=== PATIENT | male | born 1960 | race Caucasian/White ===

== ENCOUNTER → 2018-03-26 | Outpatient (CLI) | payer OTHER ==
[~2018-03-26] VITALS: Ht 182.9 cm; Wt 89.4 kg
[~2018-03-26] MED LIST: ASPIR 8181 MG PO; CHROMIUM PICO200 MCG PO; CO Q-10100 MG PO; HYDROCODONE-AP1 EAC6 PO; LIPITOR10 MG PO; MOBIC15 MG PO; MOBIC7.5 MG PO; MULTIVITAMINS; NORCO 5-325 TA1 EACH PO; TRILIPIX45 MG PO; VITAMIN D400 UNIT PO
[2018-03-26 10:03] VITALS: BP 131/73
--- NOTE | 2018-03-26 10:24 | NUR ---
Pain Clinic Assessment: 1. History of Osteoarthritis: Not Applicable History of Rheumatoid Arthritis: 2. Height: 6 ft. 0 in. 182.9 cm. Weight: 197.0 lb. oz. 89.359 kg. Patient's BMI: 26.7 3. Vital Signs: BP: 131/73 Pulse: 73 Resp: 16 Temp: 02 Sat: 96 ECG Mon: 4. Pain Intensity: 9 5. Fall Risk: Dizziness: N Needs help standing or walking: N Fallen in the last 3 months: N Fall risk comments: 6. Patient on Blood Thinner: None 7. History of Hypertension: N 8. Opioid Therapy greater than 6 weeks: N Opiate Contract Signed: 9. Risk Assessment Tool Provided: 10. Functional Assessment Tool: 11. Recreational Drug Use: Never Drug Type: Tobacco Use: Never Smoker Tobacco Type: Amount or Packs/day: How Many Years: Alcohol Use: No Frequency: Quant:
--- NOTE | 2018-03-31 11:18 | HPC ---
[facility] [address] [place] [address] PAIN MANAGEMENT CONSULTATION Name: SUSAN BAILEY Room #: REG TODD Riaz#: [id number] Admission: 03/26/18 Attend Phys: Osman Alvarez MD Discharge: Date of : 58 Report #: [id number] THIS REPORT FOR: //name// CC: Osman Nelson DATE OF SERVICE: 03/26/2018 CHIEF COMPLAINT: Neck pain, numbness and burning into both arms. HISTORY OF PRESENT ILLNESS: This is a patient who I have known for almost 20 years. I first treated him for cervical radiculopathy, I believe in the . He had a herniated nucleus pulposus at C6-C7 at that time. He then had recurrent symptoms in 2003 and 2010 each time receiving good response to 1 or 2 cervical epidural injections. About 2 months ago, he was moving boxes when he and his moved from their home and he developed recurring symptoms of cervical radiculopathy. It is intermittent on each arm moving from one to the other, burning sensation with tingling into his hands. It is oftentimes worse at night and he describes it today as a 7/10, but it has been very severe bothersome up to a 9/10. He has tried all the conservative measures of waiting for time, gentle range of motion, exercises and physical treatments that he is known from the past. He has taken anti-inflammatory medications as well as gabapentin without improvement. He is scheduled for a cervical epidural injection today. We have not ordered a new MRI, but we will consider that if he does not respond to treatment. MEDICATIONS: Atorvastatin. ALLERGIES: PENICILLIN. PAST MEDICAL HISTORY: Hernia repairs, 3 within the last 5 years. Otherwise, he denies any other significant medical illnesses. REVIEW OF SYSTEMS: Positive for sudden hearing loss. He wears hearing aids. He has a history of kidney stones. SOCIAL HISTORY: Denies tobacco or alcohol. 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 PHYSICAL EXAMINATION: [facility] [address] [place] [address] PAIN MANAGEMENT CONSULTATION Name: SUSAN BAILEY Florencia [id number] Admission: 03/26/18 Attend Phys: Osman Alvarez MD Discharge: Date of : 58 Report #: [id number] GENERAL: He is a very pleasant 57-year-old, alert and oriented. No signs of depression or anxiety. VITAL SIGNS: His BMI is 26.7, blood pressure 131/73, heart rate 73, respirations 16. MUSCULOSKELETAL: Cervical range of motion is examined and is actually pretty good in all planes, flexion, extension, [id number]-[id number] rotation and side tilt. He has some tenderness at the base of the cervical spine and some myofascial spasm that is mild in nature. Strength in the upper extremities is within normal limits. Deep tendon reflexes, however, are diminished, 1+ to trace at the biceps, triceps and brachioradialis bilaterally. Deep tendon reflexes in the lower extremities are 1-2+, considered normal with no evidence of hyperreflexia. He has numbness in a broad distribution throughout the C5, C6, C7 distribution. Old MRI is reviewed and he does have degenerative disk disease with history of herniated nucleus pulposus. Disk degeneration is noted at C5-C6 and C6-C7 with encroachment upon the cervical canal. IMPRESSION: Cervical radiculopathy, bilateral. PROCEDURE: Cervical epidural steroid injection under fluoroscopic guidance. DESCRIPTION OF PROCEDURE: The patient was taken to the fluoroscopic suite, placed prone, skin prepped with ChloraPrep. Skin anesthetized over the C6-C7 interspace. A 20-gauge Tuohy epidural needle advanced first attempt into the epidural space with loss of resistance technique. There was no blood or CSF aspirated. 1 mL of Omnipaque injected with good spread of dye observed in the epidural space followed by 3 mL of 0.5% lidocaine mixed with 80 mg of triamcinolone. He tolerated the procedure well and was taken to recovery room for observation and followed for 45 minutes and then discharged in good condition. Follow up as needed. We will consider a cervical MRI if symptoms are not improved. <ELECTRONICALLY SIGNED> By: Osman Alvarez MD 03/31/18 [id number] Osman Alvarez MD /nt
== END | disposition home or self-care (01) ==
LOC: PAIN 08:06
DX: M54.12 Radiculopathy, cervical region (principal); G89.29 Other chronic pain; Z79.899 Other long term (current) drug therapy; Z88.0 Allergy status to penicillin; Z87.442 Personal history of urinary calculi; Z98.890 Other specified postprocedural states

== ENCOUNTER → 2020-10-18 | Outpatient (CLI) | payer OTHER, BC ==
[~2020-10-18] VITALS: Ht 182.9 cm; Wt 93.6 kg
[2020-10-18 12:53] VITALS: BP 130/88
--- NOTE | 2020-10-18 13:33 | NUR ---
Pain Clinic Assessment: 1. History of Osteoarthritis: Not Applicable History of Rheumatoid Arthritis: Not Applicable 2. Height: 6 ft. 0 in. 182.9 cm. Weight: 206.4 lb. oz. 93.623 kg. Patient's BMI: 28.0 3. Vital Signs: BP: 130/88 Pulse: 58 Resp: 16 Temp: 02 Sat: 100 ECG Mon: 4. Pain Intensity: 9 WITH EPISODE- 0 NOW 5. Fall Risk: Dizziness: N Needs help standing or walking: N Fallen in the last 3 months: N Fall risk comments: 6. Patient on Blood Thinner: None 7. History of Hypertension: N 8. Opioid Therapy greater than 6 weeks: N Opiate Contract Signed: 9. Risk Assessment Tool Provided: LOW-0 10. Functional Assessment Tool: 11. Recreational Drug Use: Never Drug Type: Tobacco Use: Never Smoker Tobacco Type: Amount or Packs/day: How Many Years: Alcohol Use: No Frequency: Quant:
== END ==
LOC: PAIN 07:53
PROVIDERS: ATTEND Anesthesiology Pain Medicine
DX: M54.12 Radiculopathy, cervical region (principal); M54.2 Cervicalgia; Z88.0 Allergy status to penicillin; Z79.899 Other long term (current) drug therapy